=== PATIENT | male | born 1955 | race Hispanic/Latino ===

== ENCOUNTER 2019-02-15 12:00 | Observation (INO) | payer MEDICAID ==
[~2019-02-15] VITALS: Ht 165.1 cm; Wt 100.6 kg
[2019-02-15 11:00] VITALS: BP 160/111
[~2019-02-15 12:00] MED LIST: AMLO10TA7 PO; FOLI1TAB15 PO
[2019-02-15] MEDS ORDERED: FURO40TA5 PO (12:22)
[2019-02-15] MEDS ORDERED: POTA10CA44 PO (12:22)
[2019-02-15] MEDS ORDERED: BACL10TA PO (12:22)
[2019-02-15] MEDS ORDERED: ALBU8.5H8 IH (12:22)
[2019-02-15] MEDS ORDERED: ERGOCALCIFEROL PO (12:22)
[2019-02-15] MEDS ORDERED: TRAM50TA4 PO (12:22)
[2019-02-17] VITALS (25 sets, daily range): BP systolic 119–170; BP diastolic 77–99
[2019-02-17] MEDS ORDERED: CEFAZOLIN SODIUM 1 GM VIAL ONE (07:50)
[2019-02-17] MEDS ORDERED: LACTATED RINGERS 1000ML 1,000 ML IV ONE (07:50)
[2019-02-17] MEDS: CEFAZOLIN 3GM /D5W 100ML 100 ML IV PRN ×2 (08:04→08:25)
--- NOTE | 2019-02-17 08:06 | NUR ---
POTENTIAL FOR INFECTION SHAVED LEFT SHOULDER / UPPER ARM PER ESTEFANY CHILDS, FOLLOWED BY WIPING WITH LUPE: 2% CHLORHEXIDINE GLUCONATE CLOTH PATIENTS PRE-OP SKIN PREP.
[2019-02-17] MEDS ORDERED: LIDOCAINE PF 2% 5ML ABBOJECT ONE (08:14)
[2019-02-17] MEDS ORDERED: PROPOFOL 10 MG/ML 20ML VIAL IV ONE (08:14)
[2019-02-17] MEDS ORDERED: ONDANSETRON HCL 4 MG/2 ML VIAL ONE (08:14)
[2019-02-17] MEDS ORDERED: FENTANYL CITRATE PF 50 MCG/1 ML 2ML VIAL ONE (08:14)
[2019-02-17] MEDS ORDERED: DEXAMETHASONE SOD PHOSPHATE 10MG/ML 1ML VIAL ONE (08:14)
[2019-02-17] MEDS ORDERED: MIDAZOLAM HCL 1 MG/ML 2ML VIAL ONE (08:15)
[2019-02-17] MEDS ORDERED: SUCCINYLCHOLINE 200MG/10ML SYR ONE (08:15)
[2019-02-17] MEDS ORDERED: ROCURONIUM 10MG/1ML SYR 10 MG/ML ML ONE (08:15)
[2019-02-17] MEDS ORDERED: EPHEDRINE SULFATE 50 MG/ML AMPULE ONE (08:54)
[2019-02-17] MEDS ORDERED: GLYCOPYRROLATE 1 MG/5 ML SYRINGE ONE (10:19)
[2019-02-17] MEDS ORDERED: NEOSTIGMINE 5MG/5ML SYR IV ONE (10:19)
[2019-02-17 10:57] LABS: HEMATOCRIT 38.3 % (42-54)
[2019-02-17] MEDS ORDERED: MORPHINE SULFATE 10 MG/ML 1ML SYG IM PRN (12:15)
[2019-02-17] MEDS ORDERED: MAGNESIUM HYDROXIDE 30 ML/UDCUP PO PRN (12:15)
[2019-02-17] MEDS ORDERED: PROMETHAZINE HCL 25 MG/ML 1ML AMPULE IM PRN (12:15)
[2019-02-17] MEDS ORDERED: BISACODYL 10 MG SUPP.RECT RC PRN (12:15)
[2019-02-17] MEDS ORDERED: CEFAZOLIN SODIUM 1 GM VIAL IVP SCH (14:00)
[2019-02-17] MEDS ORDERED: TRAMADOL HCL 50 MG TABLET PO PRN (15:30)
[2019-02-17] MEDS ORDERED: BACLOFEN 10 MG TABLET PO PRN (15:30)
[2019-02-17] MEDS ORDERED: ONDANSETRON HCL 4 MG/2 ML VIAL IVP PRN (15:45)
[2019-02-17 17:36] LABS: HEMATOCRIT 40.8 % (42-54)
[2019-02-17] MEDS: CEFAZOLIN 3GM /D5W 100ML 100 ML IV SCH ×2 (17:45→23:51)
[2019-02-17] MEDS: MORPHINE SULFATE 2 MG/ML 1ML SYG IVP PRN (19:29)
[2019-02-17] MEDS ORDERED: KETOROLAC TROMETHAMINE 15MG/ML IM PRN (21:00)
[2019-02-17] MEDS: FAMOTIDINE 20MG TAB 20 MG TAB PO SCH (21:19)
[2019-02-18] VITALS: BP 183/100
--- NOTE | 2019-02-18 | NUR ---
BLOOD PRESSURE PATIENT'S BLOOD PRESSURE ELEVATED, AJ DESKTOP MANAGER NOTIFIED AND ORDERS GIVEN FOR HYDRALAZINE IV.
[2019-02-18] MEDS ORDERED: HYDRALAZINE HCL 20 MG/ML VIAL ONE (00:01)
[2019-02-18] MEDS: MORPHINE SULFATE 2 MG/ML 1ML SYG IVP PRN (00:04)
[2019-02-18] MEDS ORDERED: HYDRALAZINE HCL 20 MG/ML VIAL IV PRN (00:15)
[2019-02-18 00:40] LABS: HEMATOCRIT 40.3 % (42-54)
[2019-02-18] MEDS ORDERED: KETOROLAC TROMETHAMINE 15MG/ML IV PRN (03:00)
--- NOTE | 2019-02-18 04:00 | NUR ---
BLOOD PRESSURE PATIENT BLOOD PRESSURE AT 193/105 HYDRALAZINE 10 MG GIVEN. BLOOD PRESSURE POST TREATMENT 134/92.
[2019-02-18 04:15] VITALS: BP 193/105
[2019-02-18 04:18] LABS: CREATININE 0.9 mg/dL (0.5-1.5); POTASSIUM 3.5 mmol/L (3.5-5.1)
[2019-02-18 04:21] LABS: HEMATOCRIT 41.4 % (42-54); MEAN CORPUSCULAR HGB CONC 34.3 g/dL (32.0-36.0); MEAN CORPUSCULAR VOLUME 84.4 fL (79-99); PLATELET COUNT (AUTO) 206 K/uL (130-400); RED CELL DISTRIBUTION WIDTH 14.9 % (11.0-15.5); WHITE BLOOD COUNT (AUTO) 12.9 K/uL (4.8-10.8)
[2019-02-18 05:15] LABS: BAND NEUTROPHILS % (MANUAL) 3 % (0-2); LYMPHOCYTES % (MANUAL) 6 % (22-44); MONOCYTES % (MANUAL) 3 % (2-9); SEGMENTED NEUTROPHILS % 88 % (40-70)
[2019-02-18 05:16] LABS: MAN.DIFF COMMENT-IMPRESSION MANUAL DIFFERENTIAL; PLATELET MORPHOLOGY COMMENT ADEQUATE
[2019-02-18 05:25] VITALS: BP 134/92
[2019-02-18 07:41] VITALS: BP 141/99
[2019-02-18] MEDS ORDERED: FOLIC ACID 1 MG TABLET PO SCH (09:00)
[2019-02-18] MEDS ORDERED: AMLODIPINE BESYLATE 5 MG TAB PO SCH (09:00)
[2019-02-18] MEDS ORDERED: FUROSEMIDE 40 MG TABLET PO SCH (09:00)
[2019-02-18] MEDS ORDERED: POTASSIUM CHLORIDE 10 MEQ/TAB.SA PO SCH (09:00)
--- NOTE | 2019-02-18 09:35 | NUR ---
URINARY SYMPTOMS PATIENT REPORTS COMPLAINT OF TROUBLE INITIATION URINE STREAM WITH VOIDING AND BURNING SENSATION WHEN VOIDING. REPORTED SYMPTOMS FOR El TEE NP FOR HOSPITALIST.
[2019-02-18] MEDS ORDERED: TAMSULOSIN HCL 0.4 MG CAP.ER.24H PO SCH (09:45)
[2019-02-18] MEDS: CEFAZOLIN 3GM /D5W 100ML 100 ML IV SCH (09:58)
[2019-02-18] MEDS: FAMOTIDINE 20MG TAB 20 MG TAB PO SCH (10:05)
[2019-02-18 11:03] VITALS: BP 153/75
[2019-02-18] MEDS ORDERED: TYL3 PO (13:52)
--- NOTE | 2019-02-18 16:05 | NUR ---
DISCHARGE PERFORMED LEFT SHOULDER INCISION DRESSING CHANGE. LEFT SHOULDER INCISION NOTED TO BE APPROXIMATED AND SYMPTOMATIC, SUTURES INTACT. CLEANSED LEFT SHOULDER INCISION WITH BETADINE, APPLIED XERFORM GAUZE, COVERED WITH STERILE 4X4 GAUZE AND SECURED WITH MEDIPORE TAPE. DISCHARGE TEACHING PROVIDED TO PATIENT AND HIS FRIEND (PATIENT'S FRIEND STATES THAT PATIENT WILL STAY WITH HER AT HER HOUSE FOR THE NEXT COUPLE OF DAYS). INSTRUCTED TO KEEP LEFT SHOULDER DRESSING DRY AND INTACT, AVOID GETTING DRESSING WET. NO SHOWERS UNTIL CLEARED BY DR. GOMES, BUT SPONGE BATHS OKAY. INSTRUCTED PATIENT AND HIS FRIEND TO KEEP LEFT ARM SLING WITH ABDUCTOR PILLOW ON AT ALL TIMES. INSTRUCTED PATIENT AND HIS FRIEND HOW TO APPLY EXTRA PADDING AROUND ARM SLING STRAP, THE STRAP WAS PRESSING INTO PATIENTS NECK, IN ORDER TO PROTECT SKIN UNDER ARM SLING STRAP AND TO ASSESS SKIN UNDER ARM SLING STRAP DAILY. COPY OF DR. GARCÍA DISCHARGE ORDERS GIVEN TO PATIENT. EXPLAINED DR. GOMES'S DISCHARGE ORDERS (DISCHARGE ACTIVITY, DIET, S/S OF COMPLICATIONS TO MONITOR) TO PATIENT AND HIS FRIEND. TEACHING PROVIDED REGARDING RX (TYLENOL #3), INSTRUCTED PATIENT TO NOT TAKE TYLENOL #3 WITH OTHER PAIN MEDICATIONS (TRAMADOL-PATIENTS HOME MEDICATION). PATIENT AND HIS FRIEND VERBALIZED UNDERSTANDING OF DISCHARGE TEACHING. REMOVED 20G IV FROM LEFT FA, CATHETER TIP INTACT. PATIENT DISCHARGES WITH LEFT ARM SLING WITH ABDUCTOR PILLOW IN APPROPRIATE POSITION AT TIME OF DISCHARGE. PATIENT TO BE DRIVEN HOME BY FAMILY.
[2019-02-22] MEDS ORDERED: [UNRECOGNIZED DRUG - OTHER] PO SCH (09:00)
== END 2019-02-18 16:20 | disposition home or self-care (01) ==
LOC: EDSTATUS 12:00 → DAHIP 02-17 10:41 → 4AH 02-17 11:20
DX: M75.102 Unspecified rotator cuff tear or rupture of left shoulder, not specified as traumatic (principal); E66.9 Obesity, unspecified; I10 Essential (primary) hypertension; J44.9 Chronic obstructive pulmonary disease, unspecified; M06.9 Rheumatoid arthritis, unspecified; M75.42 Impingement syndrome of left shoulder; Z68.36 Body mass index [BMI] 36.0-36.9, adult; Z82.0 Family history of epilepsy and other diseases of the nervous system; Z82.49 Family history of ischemic heart disease and other diseases of the circulatory system; Z83.3 Family history of diabetes mellitus; Z79.899 Other long term (current) drug therapy
CPT/HCPCS: 23130; 23412; 36415 ×2; 80048; 85014 ×3; 85018 ×3; 85025; 94760; 96365; 96366; 96375 ×2; 96376; 97116; 97161; A4215; A4221; A4222; A4223; A4600; A4663; A4930 ×3; A5120; A6223; C1713 ×2; G0378 ×23; G8978; G8979; G8980; G8981; G8982; G8983; J0330; J0360 ×2; J0690 ×2; J1100; J1885; J2001; J2250; J2405; J2704; J2710; J3010; J3490 ×2; J7030; J7120